=== PATIENT | female | born 1990 | race Caucasian/White ===

== ENCOUNTER 2020-10-06 14:30 | Emergency (ER) | payer SELFPAY ==
[~2020-10-06 14:30] MED LIST: AMOX500 PO; Naprosyn500 MG PO; Veetids 500500 MG PO
== END 2020-10-06 15:22 | disposition home or self-care (01) ==
LOC: ER 14:30
DX: U07.1 COVID-19 (principal)
CPT/HCPCS: 99282

== ENCOUNTER → 2023-08-06 | Outpatient (CLI) | payer OTHER ==
[2023-08-06 10:34] LABS: Source, Urine Clean Catch
[2023-08-06 12:20] LABS: Amorphous Heavy (0-Heavy); Bacteria Many /hpf; Calcium Oxalate Crystals Few /hpf; Mucus Light (0-Heavy); Red Blood Cells, Urine 0-2 /hpf (0-2); Squamous Epithelial Cells Few /hpf (Few)
== END | disposition home or self-care (01) ==
LOC: LAB 10:30 → LAB SHORT 10:30
PROVIDERS: Family Medicine
DX: Z34.81 Encounter for supervision of other normal pregnancy, first trimester (principal)
CPT/HCPCS: 81015; 87086

== ENCOUNTER 2023-12-31 10:35 | Inpatient (IN) | payer OTHER ==
[~2023-12-31] VITALS: Ht 162.6 cm; Wt 98.2 kg
[2023-12-31] VITALS (18 sets, daily range): BP systolic 91–147; BP diastolic 56–104
[2023-12-31] MEDS ORDERED: Lactated Ringer's 1,000 ML IV STA (11:35)
[2023-12-31] MEDS ORDERED: CeFAZolin Sodium 2,000 MG in NS 100 ML IV SCH (11:35)
[2023-12-31] MEDS ORDERED: Lactated Ringer's 1,000 ML IV SCH (11:35)
[2023-12-31] MEDS ORDERED: Azithromycin 500 MG in NS 250 ML IV SCH (11:35)
[2023-12-31] MEDS ORDERED: Citric Acid/Sodium Citrate 30 ML BTL PO STA (11:42)
[2023-12-31] MEDS ORDERED: Metoclopramide HCl 5MG / ML 2ML Vial IV ONE (11:45)
[2023-12-31] MEDS ORDERED: PRENATAL TABLE1 EAC2 PO (11:47)
[2023-12-31 12:09] LABS: BASOPHILS ABSOLUTE AUTO 0.08 K/mm3 (0.00-0.23); BASOPHILS PERCENT AUTO 1 % (0-2); EOSINOPHILS ABSOLUTE AUTO 0.16 K/mm3 (0.00-0.68); EOSINOPHILS PERCENT AUTO 1 % (0-6); Hematocrit 36.8 % (33.0-51.0); Hemoglobin 13.4 g/dL (11.5-16.0); IMMATURE GRAN ABSOLUTE AUTO 0.06 K/mm3 (0.00-0.10); IMMATURE GRAN PERCENT AUTO 1 % (0-1); LYMPHOCYTES ABSOLUTE AUTO 2.54 K/mm3 (0.84-5.20); LYMPHOCYTES PERCENT AUTO 21 % (21-46); MONOCYTES ABSOLUTE AUTO 0.71 K/mm3 (0.16-1.47); MONOCYTES PERCENT AUTO 6 % (4-13); Mean Corpuscular HGB 32.7 pg (26.0-34.0); Mean Corpuscular HGB Conc 36.4 g/dL (31.5-36.5); Mean Corpuscular Volume 90 fL (80-100); Mean Platelet Volume 11.6 fL (9.1-12.4); NEUTROPHILS ABSOLUTE AUTO 8.77 K/mm3 (1.96-9.15); NEUTROPHILS PERCENT AUTO 71 % (41-73); Platelet Count 265 K/mm3 (150-400); White Blood Cell Count 12.32 K/mm3 (4.00-11.30)
[2023-12-31] MEDS ORDERED: FentaNYL Citrate 50 MCG/ML 2 ML Injection ONE (12:12)
[2023-12-31] MEDS ORDERED: Oxytocin 10 Unit / ML Vial ONE ×2 (12:13→13:18)
[2023-12-31] MEDS ORDERED: Phenylephrine HCl 100 MCG/ML-NS 10MLSYR (1MG/10ML) ONE (12:54)
[2023-12-31] MEDS ORDERED: Glycopyrrolate 0.2 MG/ML 5ML VIAL ONE (12:56)
--- NOTE | 2023-12-31 13:19 | NUR ---
12/31/23 1319 Nae Álvarez FHT DOPPLERED PRIOR TO DRAPE AFTER SPINAL - 130S. VIABLE MALE BORN 1305. WEIGHT 3070GM 6LB 12 OZ; 12IN CHEST; 14.25 IN HEAD; 20 IN LENGTH; CORD BLOOD SENT W/K. CEDRIC GAMING.
[2023-12-31] MEDS ORDERED: Methylergonovine Maleate 0.2MG / ML 1ML Amp IM PRN (13:55)
[2023-12-31] MEDS ORDERED: Carboprost Tromethamine 250 MCG/ML 1ML Amp IM PRN (14:00)
[2023-12-31] MEDS ORDERED: Ketorolac Tromethamine 30mg Vial IV SCH (14:00)
[2023-12-31] MEDS ORDERED: Lanolin Cream TOP PRN (14:00)
[2023-12-31] MEDS ORDERED: Rho(D) Immune Globulin 300 MCG / SYR IM ONE (14:00)
[2023-12-31] MEDS ORDERED: Misoprostol 200 MCG Tab PR PRN (14:00)
[2023-12-31] MEDS ORDERED: Acetaminophen 500 MG Tab PO PRN (14:00)
[2023-12-31] MEDS ORDERED: Ondansetron HCl 2 MG / ML 2ML Vial IV PRN (14:00)
[2023-12-31] MEDS ORDERED: Morphine Sulfate 4 MG/1 ML Injection IV PRN (14:00)
[2023-12-31] MEDS ORDERED: OxyCODONE HCL 5 MG TAB PO PRN (14:05)
[2023-12-31] MEDS ORDERED: OXYTOCIN/RINGER'S LACTATE 500 ML IV SCH (14:05)
[2023-12-31] MEDS ORDERED: Simethicone 80 MG Chew PO PRN (14:05)
[2023-12-31] MEDS ORDERED: Promethazine HCl 25 MG Tab PO PRN (14:05)
[2023-12-31] MEDS ORDERED: Fluconazole 100 MG Tab PO ONE ×2 (16:20→17:25)
--- NOTE | 2023-12-31 23:38 | NUR ---
All needs are met at this time.
[2024-01-01] VITALS (7 sets, daily range): BP systolic 99–122; BP diastolic 49–64
--- NOTE | 2024-01-01 00:04 | NUR ---
Pt is awake and sitting up. She is holding and feeding baby at this time. call light in reach,pt will call when feeding is done.
--- NOTE | 2024-01-01 02:23 | NUR ---
PT ASSISTED TO STAND AT SIDE OF BED WITH RN ASSIST. PERCARE COMPLETED. PT AMBULATED ABOUT 5 FEET. LINENS CHANGED. PT TOLERTATED WELL.
[2024-01-01] MEDS ORDERED: Ketorolac Tromethamine 30mg Vial IV ONE (06:40)
[2024-01-01 06:49] LABS: BASOPHILS ABSOLUTE AUTO 0.05 K/mm3 (0.00-0.23); BASOPHILS PERCENT AUTO 1 % (0-2); EOSINOPHILS ABSOLUTE AUTO 0.11 K/mm3 (0.00-0.68); EOSINOPHILS PERCENT AUTO 1 % (0-6); Hematocrit 30.1 % (33.0-51.0); Hemoglobin 10.3 g/dL (11.5-16.0); IMMATURE GRAN ABSOLUTE AUTO 0.06 K/mm3 (0.00-0.10); IMMATURE GRAN PERCENT AUTO 1 % (0-1); LYMPHOCYTES ABSOLUTE AUTO 2.38 K/mm3 (0.84-5.20); LYMPHOCYTES PERCENT AUTO 22 % (21-46); MONOCYTES PERCENT AUTO 6 % (4-13); Mean Corpuscular HGB 31.7 pg (26.0-34.0); Mean Corpuscular HGB Conc 34.2 g/dL (31.5-36.5); Mean Corpuscular Volume 93 fL (80-100); Mean Platelet Volume 12.2 fL (9.1-12.4); NEUTROPHILS ABSOLUTE AUTO 7.56 K/mm3 (1.96-9.15); NEUTROPHILS PERCENT AUTO 70 % (41-73); Platelet Count 209 K/mm3 (150-400); RDW Coefficient Variation 11.9 % (11.7-14.2); RDW Standard Deviation 40.3 fL (35.1-46.3); Red Blood Cell Count 3.25 M/mm3 (3.80-5.20); White Blood Cell Count 10.76 K/mm3 (4.00-11.30)
[2024-01-01] MEDS ORDERED: Ibuprofen 400 MG Tab PO SCH (08:00)
--- NOTE | 2024-01-02 00:16 | NUR ---
c/s abdominal dressing intact. milkd moisture noted during assessment. Encouraged pt to keep dry and clean. 35% of shadowing noted to dressing as well. pt mobilizing well. Will pass on concerns to day shift for suggestion of fungal powder r/t pts qaulity of living and poor hygiene. education provided re same to pt. Pt understood same.
--- NOTE | 2024-01-02 05:57 | NUR ---
At 0200 Pt ++ emotional and teary for staff. Pt stated "I don't know why he won't stop crying", pt reported chnaged, burped, and fed baby. Mom ++ exhausted has slept couple of hours in last two days. Encouraged mom to sleep, while staff watched baby. Deferred 0400 vs r/t clinical judgement of pt priority of resting to mental health. Pt VSS prior to that, fundus, flow, and incision intact prior to that. .0
[2024-01-02 07:08] VITALS: BP 109/61
--- NOTE | 2024-01-02 11:16 | NUR ---
Assumed care Rpt from Greg Bucio RN
--- NOTE | 2024-01-02 11:25 | NUR ---
DISCHARGED WITH NB
[2024-01-02] MEDS ORDERED: IBUP800 PO (11:30)
[2024-01-02] MEDS ORDERED: ACET500 PO (11:30)
--- NOTE | 2024-01-02 12:30 | NUR ---
REVIEWED ALL DISCHARGE INSTRUCTIONS WITH MOM AND SO, MOM VERY ATTENTIVE ANSWERED QUESTIONS AND VERBALIZED UNDERSTANDING INSTRUCTIONS AND FOLLOW UP APPOINTMENTS, SO UP TO BATHROOM SEVERAL TIMES THEN RETURNING TO LIE DOWN ON COUCH STATES HE HAS BACK SPASM. CPS WORK HERE AND HAS CLEARED PT AND NB FOR DISCHARGE AND SHE PLANS TO GIVE THEM A RIDE TO THE HOME WHERE THEY WILL BE STAYING, WRITTEN INSTRUCTIONS PLACE IN DISCHARGE FOLDER, PT TO CALL AFTER FINISHING LUNCH AND GETTING DRESSED TO BE WALKED OUT TO CAR WITH NB
== END 2024-01-02 12:50 | disposition home or self-care (01) | DRG 788 ==
LOC: BC 10:35 → OBS 10:35 → BC 11:08
PROVIDERS: ADMIT Obstetrics & Gynecology
PROC: 10D00Z1 Extraction of Products of Conception, Low, Open Approach (ICD-10-PCS; principal; 2023-12-31 14:00)
DX: O42.02 Full-term premature rupture of membranes, onset of labor within 24 hours of rupture (principal); Z37.0 Single live birth; O99.214 Obesity complicating childbirth; Z3A.37 37 weeks gestation of pregnancy; O99.824 Streptococcus B carrier state complicating childbirth; O32.1XX0 Maternal care for breech presentation, not applicable or unspecified
CPT/HCPCS: 36415; 59025; 85025; 86850; 86900; 86901; 86923; 99214; A9270; J0690; J1885; J2371; J2590; J2765; J3010; J7120

== ENCOUNTER 2024-05-16 12:23 | Observation (INO) | payer OTHER ==
[~2024-05-16] VITALS: Ht 162.6 cm; Wt 102.4 kg
[~2024-05-16 12:23] MED LIST changes: +ACET500 PO; +IBUP800 PO; +PRENATAL TABLE1 EAC2 PO
[2024-05-16 13:20] LABS: BASOPHILS ABSOLUTE AUTO 0.04 K/mm3 (0.00-0.23); BASOPHILS PERCENT AUTO 1 % (0-2); EOSINOPHILS ABSOLUTE AUTO 0.19 K/mm3 (0.00-0.68); EOSINOPHILS PERCENT AUTO 3 % (0-6); Hematocrit 40.3 % (33.0-51.0); Hemoglobin 13.6 g/dL (11.5-16.0); IMMATURE GRAN ABSOLUTE AUTO 0.01 K/mm3 (0.00-0.10); IMMATURE GRAN PERCENT AUTO 0 % (0-1); LYMPHOCYTES ABSOLUTE AUTO 2.24 K/mm3 (0.84-5.20); LYMPHOCYTES PERCENT AUTO 35 % (21-46); MONOCYTES PERCENT AUTO 6 % (4-13); Mean Corpuscular HGB 31.1 pg (26.0-34.0); Mean Corpuscular HGB Conc 33.7 g/dL (31.5-36.5); Mean Corpuscular Volume 92 fL (80-100); Mean Platelet Volume 10.3 fL (9.1-12.4); NEUTROPHILS ABSOLUTE AUTO 3.53 K/mm3 (1.96-9.15); NEUTROPHILS PERCENT AUTO 55 % (41-73); Platelet Count 296 K/mm3 (150-400); RDW Coefficient Variation 11.9 % (11.7-14.2); RDW Standard Deviation 40.3 fL (35.1-46.3); Red Blood Cell Count 4.38 M/mm3 (3.80-5.20); White Blood Cell Count 6.41 K/mm3 (4.00-11.30)
[2024-05-16 13:34] LABS: Albumin, Blood 3.8 g/dL (3.4-5.0); Albumin/Globulin Ratio 1.1 (0.8-1.8); Bilirubin, Total 0.4 mg/dL (0.1-1.0); Bun/Creatinine Ratio 23.4 (12.0-20.0); Calcium, Blood 9.6 mg/dL (8.5-10.1); Creatinine, Blood 0.81 mg/dL (0.40-1.00); Globulin, Blood 3.5 g/dL (2.2-4.0); Potassium, Blood 3.8 mmol/L (3.5-5.5); Total Protein, Blood 7.3 g/dL (6.4-8.2)
[2024-05-16] MEDS ORDERED: Ketorolac Tromethamine 15mg Vial IV ONE (15:50)
[2024-05-16] MEDS ORDERED: Ondansetron HCl 2 MG / ML 2ML Vial IV PRN (16:45)
[2024-05-16] MEDS ORDERED: Lactated Ringer's 1,000 ML IV SCH (16:45)
[2024-05-16] MEDS ORDERED: HYDROcodone 5-APAP 325 TAB PO PRN (16:50)
[2024-05-16] MEDS ORDERED: Ondansetron 4 MG TAB PO PRN (16:50)
[2024-05-16] MEDS ORDERED: FentaNYL Citrate 50 MCG/ML 2 ML Injection IV PRN (16:50)
[2024-05-16] MEDS ORDERED: Ampicillin Sod/Sulbactam Sod 3 GM in NS 100 ML IV SCH (17:00)
[2024-05-16] MEDS ORDERED: Ketorolac Tromethamine 15mg Vial IV PRN (17:15)
[2024-05-16 18:49] VITALS: BP 132/82
--- NOTE | 2024-05-16 21:18 | NUR ---
ADMISSION NOTE PT ARRIVED FROM ER 1848. TOOK REPORT FROM DAYSHIFT RN. PT AOX4, CALM AND COOPERATIVE. PT INDEPENDENT IN ROOM. ORIENTED PT TO RM AND EXPLAINED CALL LIGHT. PT VERBALIZED UNDERSTANDING. THIS RN TO ASSUME CARE.
[2024-05-17] VITALS (12 sets, daily range): BP systolic 117–141; BP diastolic 71–86
[2024-05-17 06:07] LABS: BASOPHILS ABSOLUTE AUTO 0.04 K/mm3 (0.00-0.23); BASOPHILS PERCENT AUTO 1 % (0-2); EOSINOPHILS PERCENT AUTO 3 % (0-6); Hematocrit 37.7 % (33.0-51.0); Hemoglobin 12.5 g/dL (11.5-16.0); IMMATURE GRAN ABSOLUTE AUTO 0.02 K/mm3 (0.00-0.10); IMMATURE GRAN PERCENT AUTO 0 % (0-1); LYMPHOCYTES ABSOLUTE AUTO 2.41 K/mm3 (0.84-5.20); LYMPHOCYTES PERCENT AUTO 32 % (21-46); MONOCYTES ABSOLUTE AUTO 0.42 K/mm3 (0.16-1.47); MONOCYTES PERCENT AUTO 6 % (4-13); Mean Corpuscular HGB 29.9 pg (26.0-34.0); Mean Corpuscular HGB Conc 33.2 g/dL (31.5-36.5); Mean Corpuscular Volume 90 fL (80-100); Mean Platelet Volume 10.1 fL (9.1-12.4); NEUTROPHILS ABSOLUTE AUTO 4.51 K/mm3 (1.96-9.15); NEUTROPHILS PERCENT AUTO 59 % (41-73); Platelet Count 248 K/mm3 (150-400); RDW Coefficient Variation 11.9 % (11.7-14.2); RDW Standard Deviation 39.2 fL (35.1-46.3); Red Blood Cell Count 4.18 M/mm3 (3.80-5.20)
--- NOTE | 2024-05-17 06:13 | NUR ---
SHIFT SUMMARY PT HAS BEEN RESTING COMFORTABLY IN BED OVERNIGHT. SHE HAS BEEN ANXIOUSLY AWAITING PROCEDURE. PT REPORTED LITTLE PAIN THROUGHOUT NIGHT, JUST TENDERNESS IN RUQ. REMINDED PT TO CALL IF PAIN GETS WORSE. PT VERBALIZED UNDERSTANDING. PT HAS BEEN INDEPENDENT IN ROOM, BUT IS CONNECTED TO IVF. ASKED PT TO CALL IF SHE NEEDS TO GO TO RESTROOM, AND SHE VERBALIZED UNDERSTANDING. PT HAS HAD NO COMPLAINTS OVERNIGHT. NO ACUTE EVENTS OVERNIGHT.
[2024-05-17 06:34] LABS: Albumin, Blood 3.1 g/dL (3.4-5.0); Bilirubin, Total 0.8 mg/dL (0.1-1.0); Bun/Creatinine Ratio 16.2 (12.0-20.0); Calcium, Blood 8.2 mg/dL (8.5-10.1); Creatinine, Blood 0.86 mg/dL (0.40-1.00); Globulin, Blood 3.2 g/dL (2.2-4.0); Potassium, Blood 3.8 mmol/L (3.5-5.5); Total Protein, Blood 6.3 g/dL (6.4-8.2)
[2024-05-17] MEDS ORDERED: FentaNYL Citrate 50 MCG/ML 2 ML Injection IV PRN ×3 (13:05→17:55)
[2024-05-17] MEDS ORDERED: HYDROmorphone HCl/Pf 1MG SYR IV PRN ×3 (13:05→17:55)
[2024-05-17] MEDS ORDERED: Lactated Ringer's 1,000 ML IV SCH (15:35)
--- NOTE | 2024-05-17 15:49 | NUR ---
PT TO DAY SURGERY FOR LAP CARY @ 5380. PT TEARFUL T/O DAY GOING BACK AND FORTH REGARDING IF SHE WANTED TO PROCEED WITH SURGERY. AFTER DISCUSSING WITH SURGEON, RN, AND RETAIL LOAN ORIGINATOR PT DECIDED TO MOVE FORWARD WITH PROCEDURE.
[2024-05-17] MEDS ORDERED: Bupivacaine 0.5% HCl 5 MG/ML 30MLVIAL ONE (15:59)
[2024-05-17] MEDS ORDERED: Rocuronium Bromide 10 MG/ML 5ML Injection IV ONE ×3 (16:08→18:28)
[2024-05-17] MEDS ORDERED: FentaNYL Citrate 50 MCG/ML 2 ML Injection ONE (16:08)
[2024-05-17] MEDS ORDERED: propofoL 20 ML IV ONE (16:08)
[2024-05-17] MEDS ORDERED: HYDROmorphone HCl/Pf 1MG SYR ONE ×2 (16:37→18:37)
[2024-05-17] MEDS ORDERED: Labetalol HCL 5 MG/ML 4ML Injection (Single Dose) ONE (17:17)
[2024-05-17] MEDS ORDERED: Ketorolac Tromethamine 30mg Vial ONE (17:37)
[2024-05-17] MEDS ORDERED: Ondansetron HCl 2 MG / ML 2ML Vial ONE (17:37)
[2024-05-17] MEDS ORDERED: Dexamethasone Sod Phos 10 MG/ML 1ML VIAL ONE ×2 (17:37→17:41)
[2024-05-17] MEDS ORDERED: Ondansetron HCl 2 MG / ML 2ML Vial IV PRN (17:55)
[2024-05-17] MEDS ORDERED: Albuterol 2.5 MG/3 ML VIAL INH PRN (17:55)
--- NOTE | 2024-05-17 18:34 | NUR ---
SHIFT SUMMARY PT STILL IN DAY SURGERY FOR LAP CARY. PT BELONGINGS REMAINING IN ROOM 332.
[2024-05-17] MEDS ORDERED: Sugammadex Sodium 200 MG/2ML SDV (100 MG/ML) ONE (18:38)
[2024-05-17] MEDS ORDERED: HYDR1TAB94 PO (21:48)
--- NOTE | 2024-05-17 22:30 | NUR ---
DISCHARGE SUMMARY: PT D/C TO HOME W/SPOUSE AND BABY, FRIEND CALLED IN TO BE ORTHOPEDIC PHYSICIAN ASSISTANT. PT VSS, INCISIONS CDI, CINDY W/SS SYEDA. PT AND SPOUSE EDUCATED WOUND CARE AND DRAIN MGMT. PT EDUCATED ON POST OP CARE INCLUDING WOUND AND DRAIN MGMT AND ACTIVITY RESTRICTIONS. PT TO CALL DR DUMONT OFFICE IN AM FOR F/U DRAIN REMOVAL. WRITTEN SCRIPT AND PRINTED EDUCATION SENT HOME W/PT.
--- NOTE | 2024-05-18 03:08 | NUR ---
POST-OP PT TO RM 208. REPORT FROM PIT OPERATOR. TO RM 208 AT 1935. PER ASSEMBLY DEPARTMENT SUPERVISOR PATIENT WAS TOLD SHE WOULD GO HOME POST SURGERY BUT DR LEA WOULD REALLY LIKE HER TO STAY THE NIGHT. TRANS PT TO BED. PATIENT DROWSY REPORTS PAIN 02/18. VSS. ABD WITH 4 LAP SITES, GLUED AND STERI-STRIPPED, NO DRAINAGE NOTED. HYPO BTS NOTED. LS CLEAR T/O. PAS PLACED BLE. PT GOT UP TO THE BSC TO VOID. VOIDED 300 ML YELLOW URINE. PATIENT GIVEN WATER PER REQUEST. PTS THINGS BROUGHT TO ROOM FROM MED FLOOR. PHONE AT BEDSIDE. EXPLAINED TO PATIENT THAT DR LEA WOULD REALLY LIKE HER TO STAY THE NIGHT BECAUSE HE SAID THERE WAS A LITTLE MORE TO THE SURGERY THAN HE THOUGHT, ONCE HE GOT IN THERE. PATIENT HAS A 5 MO. OLD BABY AT HOME WITH HIS FATHER. IS COMING IN WITH BABY. COMES IN TALKING ABOUT HOW HE DIDNT GET ANY SLEEP LAST NIGHT BECAUSE THE BABY WOULD NOT SLEEP. REPORTS THAT HE'S DRANK 18 MONSTER ENERGY DRINKS AND HE IS RUNNING OUT OF STEAM. EXPLAINED TO WHAT DR LEA WHOULD LIKE AND HE SAID NO SHE WANTS TO GO HOME AND SHE CONFIRMS THAT TO BE TRUE. CINDY DRAIN TEACHING DONE WITH PATIENT AND HOW TO GET ALL THE AIR OUT OF IT SO IT CONTINUES TO DRAIN 22ML SERO/SANG DRAINAGE EMPTIED AT THIS TIME. PT VERBALIZES UNDERSTANDING OF HOW TO CARE FOR CINDY. BABY WAS DRINKING BOTTLE HAVING SM AMOUNT LEFT. THIS RN PICKED UP BABY AND BURPED HIM. BABY IN DADS ARM NOW AND CRYING. WALKED IN AND SAW BABYS BLANKET ON BED. I SUGGESTED TO WRAP HIM IN BLANKET AND ROCK HIM SOME MORE. PATIENT STILL DETERMINED TO GO HOME. FRIEND WITH CARE THAT BROUGHT DAD AND BABY HERE WILL BE GOING TO BED SOON AND THAT NEED RIDE FROM HIM. SEE JANET ASSEMBLY DEPARTMENT SUPERVISORHEAD CUSTODIAN NOTE. COMES IN CARRYING BABY IN CAR SEAT. WHEN I TOLD WHAT HAD REQUESTED. HE STARTED TELL ME THAT HE HAD NOT SLEPT ALL NIGHT BECAUSE THE BABY WOULD NOT SLEEP. ALSO THAT HE HAS DRANK 18 MONSTER ENERGY DRINKS. SAYING LAST TIME I DID THIS I ENDED UP IN HERE TOO. PT IS VERY ANXIOUS AND AMPED UP. EVEN SAT IN THE CHAIR AND APPEARED TO BE SLEEPING. WHEN I NEED TO GET AROUND BED PT JUMPED LIKE I SCARED HIM. BABY WAS PRETTY HAPPY MOST OF THE TIME BUT THEN STARTED CRYING. HELP PT GET HIS BOTTLE AND LAY HIM NEXT TO HER. SAID SHE WANTS TO GO HOME. PT AGGREED THAT SHE WANTED TO GO HOME.TRIED SEVERAL DIFFERENT TACTICS BUT NOTHING WORKED HER MIND WAS SET TO GO HOME. CHARGE GOT AHOLD OF DR RUIZ. INSTRUCTED PATIENT ON HOW TO EMPTY CINDY AND GET AIR OUT OF BULB PRIOR TO CLOSING. FEEDING BABE. BABY STARTED CRYING THEN HERE WAS ONL
== END 2024-05-17 22:30 | disposition home or self-care (01) ==
LOC: ER 12:23 → MEDS 12:24 → ER 16:43 → SURS 16:43 → MEDS 18:45 → SURS 18:45
PROVIDERS: Family Medicine; Physician Assistant; Surgery; ADMIT Surgery
PROC: BF03YZZ Plain Radiography of Gallbladder and Bile Ducts using Other Contrast (ICD-10-PCS; principal; 2024-05-17 14:30)
PROC: 0FT44ZZ Resection of Gallbladder, Percutaneous Endoscopic Approach (ICD-10-PCS; principal; 2024-05-17 14:30)
DX: K80.12 Calculus of gallbladder with acute and chronic cholecystitis without obstruction (principal)
CPT/HCPCS: 36415; 74300; 76705; 80053; 83605; 83690; 84703; 85025; 88304; 93005; 93010; 94760; 96361; 96366; 96374; 96375; 96376; 99285-25; A9270; C1729; G0378; J0295; J1100; J1171; J1885; J2405; J2704; J3010; J7120